=== PATIENT | female | born 1965 | race African-American/Black ===

== ENCOUNTER 2019-03-12 07:23 | Emergency (ER) | payer MEDICARE, OTHER ==
[~2019-03-12] VITALS: Ht 167.6 cm; Wt 59.0 kg
[2019-03-12] MEDS ORDERED: ACETAMINOPHEN 500MG TABLET PO ONE (07:45)
[2019-03-12 10:15] VITALS: BP 165/97
== END 2019-03-12 10:37 | disposition home or self-care (01) ==
LOC: ER 07:23
DX: S93.491A Sprain of other ligament of right ankle, initial encounter (principal); W18.39XA Other fall on same level, initial encounter; Y93.89 Activity, other specified; Y92.89 Other specified places as the place of occurrence of the external cause; Y99.8 Other external cause status
CPT/HCPCS: 73610; 99283